=== PATIENT | male | born 1955 | race Two or more races ===

== ENCOUNTER 2017-01-07 02:40 | Emergency (ER) | payer BC ==
[~2017-01-07] VITALS: Ht 175.3 cm; Wt 70.4 kg
[2017-01-07 02:40] VITALS: BP 142/80
== END 2017-01-07 03:16 | disposition home or self-care (01) ==
LOC: ED 03:14
DX: B35.3 Tinea pedis (principal)
CPT/HCPCS: 99282

== ENCOUNTER → 2018-06-11 | Outpatient (CLI) | payer BC | END | disposition home or self-care (01) | LOC: ROC 07:45 | PROVIDERS: ATTEND Radiology Radiation Oncology | DX: C61 Malignant neoplasm of prostate (principal); E78.00 Pure hypercholesterolemia, unspecified; Z80.42 Family history of malignant neoplasm of prostate | CPT/HCPCS: 99214; G0463 ==

== ENCOUNTER → 2018-07-14 | Outpatient (CLI) | payer BC ==
[~2018-07-14] MED LIST: FENTANYL PF 100 MCG/2ML ONE; MIDAZOLAM 1 MG/ML, 5ML ONE
== END | disposition home or self-care (01) ==
LOC: ROC 07:06
PROVIDERS: ATTEND Radiology Radiation Oncology
DX: C61 Malignant neoplasm of prostate (principal)
CPT/HCPCS: 55876; 76942; 77332; 99156; A4648; J2250; J3010

== ENCOUNTER 2018-07-20 08:35 | Outpatient (CLI) | payer BC | END 2018-07-20 23:59 | disposition home or self-care (01) | LOC: CFH 08:35 | PROVIDERS: ATTEND Radiology Radiation Oncology | DX: C61 Malignant neoplasm of prostate (principal) | CPT/HCPCS: 72195 ==

== ENCOUNTER → 2018-10-29 | Outpatient (CLI) | payer BC | END | disposition home or self-care (01) | LOC: ROC 07:31 | PROVIDERS: ATTEND Radiology Radiation Oncology | DX: C61 Malignant neoplasm of prostate (principal) | CPT/HCPCS: 99213; G0463 ==

== ENCOUNTER 2019-03-01 07:17 | Outpatient (CLI) | payer BC | END 2019-03-01 23:59 | disposition home or self-care (01) | LOC: ROC 07:17 | PROVIDERS: ATTEND Radiology Radiation Oncology | DX: C61 Malignant neoplasm of prostate (principal) | CPT/HCPCS: 99212; G0463 ==

== ENCOUNTER 2019-05-15 06:48 | Emergency (ER) | payer BC ==
[~2019-05-15] VITALS: Ht 175.3 cm; Wt 75.2 kg
[2019-05-15 06:50] VITALS: BP 147/87
--- NOTE | 2019-05-15 07:31 | NUR ---
THIS IS A 63 YO M W/ C/O BURNING W/ URINATION AND CONSTANT PAIN AND ITCHING. PATIENT STATES HE HAD RADIATION FOR PROSTATE CANCER IN JULY 2018. DENIES FLANK PAIN, N/V. RESPIRATIONS ARE EVEN AND UNLABORED, PATIENT IS IN NO ACUTE DISTRESS. BRITT IS RESTING ON GURNEY BEING EVALUATED BY PROVIDER.
[2019-05-15] MEDS ORDERED: TAMS-11 PO (07:36)
[2019-05-15 08:00] LABS: ALBUMIN 3.6 g/dL (3.4-5.0); ANION GAP 7 mmol/L (5-15); CALCIUM 8.5 mg/dL (8.5-10.1); CHLORIDE 107 mmol/L (98-107)
[2019-05-15 08:09] LABS: MICROSCOPIC NOT IND
[2019-05-15 08:11] LABS: MEAN CORPUSCULAR HEMOGLOBIN 20.7 pg (27.5-34.5); MEAN CORPUSCULAR HGB CONC 31.2 g/dL (33.2-36.2); MEAN CORPUSCULAR VOLUME 66.3 fL (81-97); MEAN PLATELET VOLUME 7.2 fL (7.4-10.4); PLATELET COUNT 248 x10^3/uL (130-400); RED BLOOD COUNT 5.98 x10^6/uL (4.38-5.82); RED CELL DISTRIBUTION WIDTH 16.2 % (9.4-14.8)
[2019-05-15 08:18] LABS: CULTURE INDICATED? NO
[2019-05-15 08:32] LABS: MD YES
[2019-05-15 08:34] LABS: BAND#(MANUAL) 0.06 x10^3/uL; BANDS%(MANUAL) 1 % (0-7); EOS#(MANUAL) 0.12 x10^3/uL (0.0-0.4); EOS% (MANUAL) 2 % (1-7); LYMPH#(MANUAL) 1.26 x10^3/uL (1-3.4); LYMPHS% (MANUAL) 21 % (22-44); MONOS#(MANUAL) 0.42 x10^3/uL (0.3-2.7); MONOS% (MANUAL) 7 % (2-9); SEG#(MANUAL) 4.14 x10^3/uL (1.8-6.8); SEGS% (MANUAL) 69 % (42-75)
[2019-05-15 08:35] LABS: ANISOCYTOSIS 1+; HYPOCHROMIA 1+; MICROCYTOSIS 2+; OVALOCYTES 1+; POLYCHROMASIA 1+
[2019-05-15 08:36] LABS: <PLATELET ESTIMATE> ADEQUATE; <PLT MORPHOLOGY> NORMAL PLT MORPH
--- NOTE | 2019-05-15 08:57 | NUR ---
Patient given discharge instructions and they have confirmed that they understand the instructions. Patient ambulatory with steady gait.
== END 2019-05-15 08:59 | disposition home or self-care (01) ==
LOC: ED 08:40
DX: R30.0 Dysuria (principal)
CPT/HCPCS: 36415; 80048; 81003; 82040; 85025; 99283

== ENCOUNTER → 2019-08-23 | Outpatient (CLI) | payer BC ==
[~2019-08-23] MED LIST changes: -FENTANYL PF 100 MCG/2ML ONE; -MIDAZOLAM 1 MG/ML, 5ML ONE; +TAMS-11 PO
== END | disposition home or self-care (01) ==
LOC: ROC 07:14
PROVIDERS: ATTEND Radiology Radiation Oncology
DX: C61 Malignant neoplasm of prostate (principal)
CPT/HCPCS: 99213; G0463

== ENCOUNTER 2019-10-25 07:53 | Outpatient (CLI) | payer BC | END 2019-10-25 23:59 | disposition home or self-care (01) | LOC: ROC 07:53 | PROVIDERS: ATTEND Radiology Radiation Oncology | DX: Z08 Encounter for follow-up examination after completed treatment for malignant neoplasm (principal); C61 Malignant neoplasm of prostate | CPT/HCPCS: 99212; G0463 ==

== ENCOUNTER → 2020-03-27 | Outpatient (CLI) | payer BC | END | disposition home or self-care (01) | LOC: ROC 07:10 | PROVIDERS: ATTEND Radiology Radiation Oncology | DX: Z08 Encounter for follow-up examination after completed treatment for malignant neoplasm (principal); Z85.46 Personal history of malignant neoplasm of prostate | CPT/HCPCS: 99212; G0463 ==

== ENCOUNTER 2020-04-03 12:43 | Emergency (ER) | payer BC ==
[~2020-04-03] VITALS: Ht 175.3 cm; Wt 75.9 kg
--- NOTE | 2020-04-03 14:20 | NUR ---
Pt states that he is Covid + and not improving. No distress noted, VSWNL.
[2020-04-03 15:32] VITALS: BP 144/67
== END 2020-04-03 15:41 | disposition home or self-care (01) ==
LOC: ED 15:15
DX: U07.1 COVID-19 (principal); B34.9 Viral infection, unspecified
CPT/HCPCS: 71045; 99283

== ENCOUNTER → 2020-09-18 | Outpatient (CLI) | payer BC | END | disposition home or self-care (01) | LOC: ROC 07:19 | PROVIDERS: ATTEND Radiology Radiation Oncology | DX: Z08 Encounter for follow-up examination after completed treatment for malignant neoplasm (principal); Z85.46 Personal history of malignant neoplasm of prostate | CPT/HCPCS: 99212; G0463 ==